=== PATIENT | male | born 1965 | race Caucasian/White ===

== ENCOUNTER 2021-05-26 09:49 | Emergency (ER) | payer OTHER ==
[~2021-05-26] VITALS: Ht 177.8 cm; Wt 113.4 kg
[~2021-05-26 09:49] MED LIST: CATAPRES 0.2MG0.2 MG TOP; CYMBALTA20 MG PO; NORCO 5-325 TA1 EACH PO; TYLENOL500 MG PO
[2021-05-26] MEDS ORDERED: BUPRENORPHIN-N1 EACH PO (10:18)
[2021-05-26] MEDS ORDERED: DICLOFENAC SODI75 MG PO (12:59)
== END 2021-05-26 13:06 | disposition home or self-care (01) ==
LOC: FER 09:49
DX: M85.671 Other cyst of bone, right ankle and foot (principal); F17.210 Nicotine dependence, cigarettes, uncomplicated
CPT/HCPCS: 73610